=== PATIENT | male | born 1995 | race Caucasian/White ===

== ENCOUNTER 2017-03-06 17:14 | Inpatient (IN) | payer MEDICAID, OTHER, SELFPAY ==
[~2017-03-06] VITALS: Ht 167.6 cm; Wt 76.1 kg
[2017-03-06 19:12] LABS: MEAN CORPUSCULAR HEMOGLOBIN 30.4 pg (27.0-33.0); MEAN CORPUSCULAR HGB CONC 34.3 g/dl (32.0-36.5); MEAN CORPUSCULAR VOLUME 88.9 fl (80.0-96.0); RED CELL DISTRIBUTION WIDTH 12.7 % (11.5-14.5); WHITE BLOOD COUNT 13.2 K/mm3 (4.0-10.0)
[2017-03-06 19:40] LABS: METHADONE URINE NEGATIVE (NEGATIVE)
[2017-03-06 19:50] LABS: ALBUMIN 4.1 GM/DL (3.2-5.2); ALBUMIN/GLOBULIN RATIO 1.21 (1.00-1.93); ALKALINE PHOSPHATASE 87 U/L (45-117); ALT/SGPT 130 U/L (12-78); ANION GAP 11 MEQ/L (8-16); AST/SGOT 100 U/L (15-37); BILIRUBIN,DIRECT 0.2 MG/DL (0.0-0.2); BILIRUBIN,TOTAL 0.5 MG/DL (0.2-1.0); BLOOD UREA NITROGEN 5 MG/DL (7-18); CALCIUM LEVEL 9.3 MG/DL (8.5-10.1); CARBON DIOXIDE LEVEL 25 MEQ/L (21-32); CHLORIDE LEVEL 106 MEQ/L (98-107); CREATININE FOR GFR 0.75 MG/DL (0.70-1.30); GLUCOSE, FASTING 99 MG/DL (70-105); POTASSIUM SERUM 3.8 MEQ/L (3.5-5.1); SODIUM LEVEL 142 MEQ/L (136-145); TOTAL PROTEIN 7.5 GM/DL (6.4-8.2)
[2017-03-07 00:40] VITALS: BP 108/71
[2017-03-07 07:05] VITALS: BP 109/60
--- NOTE | 2017-03-07 09:46 | HPEPDOC ---
Medical History and Physical Date of Admission Mar 06, 2017 at 22:31 History and Physical PCP: None ATTENDING: Dr. Luis Duran HPI: 21yoM admitted to [facility] for unspecified depressive disorder, being medically examined today. No acute medical complaints today. Denies any fevers, chills, weakness, fatigue, DOMINGUEZ, CP, SOB, cough, palpitations, abdominal pain, N/V /D or changes in bowel or bladder habits. PMHx: Anxiety Depression Self-mutilation PSHX: Right knee Tympanostomy tubes SOCHX: Resides in: [facility] with his mother, previously from [facility] Marital Status: Single Kids: One child on the way Employment: Unemployed Tobacco use: One and a half packs per day ETOH: Once per year up to one bottle of liquor Illicit Drugs: Marijuana daily. Methamphetamine. Patient states history of "every drug" when I inquired regarding additional history. IV Drug Use: Denies Tattoos done unprofessionally: 1 FAMHX: Mother: Alive, well Father: Alive, well Siblings: 3 sisters Alive, well Children: None Unexpected deaths due to medical reasons: None. ROS: As noted in HPI, otherwise 11pt ROS of systems reviewed and remarkable only for left forearm excoriations which she states occurred with running to the words but also subsequently states he did and slight cut himself with a knife 4. He also has a small laceration noted at the distal right index finger which he states is from dropping a plate. PE: GEN: 21 yo M, appears stated age. Well-nourished, well developed. No acute distress. Alert and oriented x 3. Pleasant, interactive. HEENT: Normocephalic, atraumatic. Pupils are equal, round, and reactive to light. Extraocular movements are intact. No nystagmus appreciated. Sclera are nonicteric. Conjunctiva without injection. Nose midline. Nasal turbinates without bogginess. EACs both patent BL. TMs both visualized and gagr with good cone of light, no bulging or erythema. No facial asymmetry. Moist mucous membranes. Dentition poor. Pharynx pink and moist. White exudate is noted on the tongue and buccal mucosa consistent with candidiasis. Neck supple, trachea midline. No lymphadenopathy or thyromegaly appreciated. CHEST: Regular rate and rhythm, +S1, +S2 LUNGS: Clear to auscultation bilaterally. No wheezes, rales, or rhonchi. Breathing appears symmetric and easy. Patient is speaking in full sentences. No accessory muscle use. ABD: Round, soft, non-tender, non-distended. +Bowel sounds throughout. No rebound or guarding. No costovertebral angle tenderness. EXT: Pulses 2+ bilaterally dorsalis pedis and radial. No lower extremity edema appreciated. SKIN: [place], dry, warm. Capillary refill <2sec. No rashes. Superficial lacerations noted left forearm, minimal erythema. No drainage. Small laceration noted at the distal right index finger, no drainage. NEURO: Alert and oriented x 3. Cranial nerves III-XII are intact. No focal deficits appreciated. EKG: Pending A&P: 21yoM admitted to [facility] for unspecified depressive disorder 1. Psych. Plan per Psychiatry.Obtain baseline EKG to assure the safety of psychiatric medications as they can prolong the QT interval. 2. Nicotine dependence. Patch available. 3. Elevated LFTs. Recheck CMP. Requests hepatitis profile. Will consider right upper quadrant ultrasound pending results. 4. Follow up. No Primary Care Provider. Will attempt to establish PCP on discharge. 5. Substance use. Per psychiatry. 6. Oral candidiasis. Nystatin swish and swallow 4 times a day 10 days. 7. Leukocytosis. Patient is asymptomatic. Afebrile. Recheck CBC. 8. Tattoo done unprofessionally. Hepatitis profile as above. Patient is declining HIV screening. 9. Left forearm superficial lacerations/right index finger laceration. Apply Bactroban twice a day. Dry dressing twice a day as needed. Patient is declining Tdap stating he is up-to-date 2 years ago with [facility]. 10. Staff member Kash present throughout exam. Vital Signs Vital Signs Date Time Temp Pulse Resp B/P (MAP) Pulse Ox O2 Delivery O2 Flow Rate FiO2 03/07/17 07:05 98.1 72 16 109/60 (76) 03/07/17 00:40 Room Air 03/07/17 00:10 97 Laboratory Data Labs 24H Laboratory Tests 2 03/06/17 18:39: Urine Amphetamines Screen NEGATIVE, Urine Benzodiazepines Screen POSITIVEH, Urine Opiates Screen POSITIVEH, Urine Methadone Screen NEGATIVE, Urine Barbiturates Screen NEGATIVE, Urine Phencyclidine Screen NEGATIVE, Urine Cocaine Metabolite Screen NEGATIVE, Urine Cannabinoids Screen POSITIVEH 03/06/17 18:40: Anion Gap 11, Calcium Level 9.3, Aspartate Amino Transf (AST/SGOT) 100H, Alanine Aminotransferase (ALT/SGPT) 130H, Alkaline Phosphatase 87, Total Bilirubin 0.5, Direct Bilirubin 0.2, Total Protein 7.5, Albumin 4.1, Albumin/ Globulin Ratio 1.21, Thyroid Stimulating Hormone (TSH) 1.180, Salicylates Level 2.4L, Acetaminophen Level < 2.0L, Ethyl Alcohol Level < 0.003 CBC/BMP Laboratory Tests 03/06/17 18:39 Red Blood Count 5.24, Mean Corpuscular Volume 88.9, Mean Corpuscular Hemoglobin 30.4, Mean Corpuscular Hemoglobin Concent 34.3, Red Cell Distribution Width 12.7 03/06/17 18:40 Home Medications No Active Prescriptions or Reported Meds Allergies Coded Allergies: Erythromycin (Unverified Allergy, Unknown, 03/06/17) Raisa Dyson Mar 07, 2017 09:46
[2017-03-07] MEDS: NYSTATIN 500,000 U/5 ML SUSP UDC SS SCH ×4 (10:24→20:48)
[2017-03-07 18:00] VITALS: BP 117/60
--- NOTE | 2017-03-07 18:43 | MHHPE ---
DATE OF ADMISSION: 03/07/2017 CURRENT MEDICATIONS: None. CHIEF COMPLAINT: Patient threatening to kill himself and others. HISTORY OF PRESENT ILLNESS: This is a 21-year-old white male living with his mother. Patient's mother called the police department requesting a mental health warehouse picker. Patient got into a big fight with his mother yesterday, he went into rage attack, he was punching himself in the head, he was hitting his head against the wall, he was pulling out his own hair, he was threatening to jump out the third story window. He attempted to get a razor blade to cut himself. Patient's mother describes him as a "ticking time bomb." He does have a history of rage attacks in the past, especially under the influence of methamphetamine. Patient does have a history of polysubstance use disorder, methamphetamine is his drug of choice. He claims to have been off of it for several months now, but his urine screen is positive for opiates, benzodiazepines, and cannabinoids. Patient has life long history of depression. Currently he states his appetite is good but his claims his weight is increasing of late. He states his concentration is fine, level of energy is fine. He reports sleeping well at night. Patient does report possibly manic episodes, but is vague about this. Patient had been evicted recently. He has been staying with drug using friends and just moved into his mother's house about a week. He claims to have been drug free for six months, but clearly has been abusing drugs in the interim. PAST PSYCHIATRIC HISTORY: Patient has never been hospitalized before. He has never been on psychiatric medications before. MEDICAL HISTORY: Patient is hard of hearing. SURGICAL HISTORY: Patient had an operation on his right knee. ALLERGIES TO MEDICATIONS: He recalls being positive to some type of allergy to a medication but cannot describe which one it is or what type of reaction he had with it. LEGAL HISTORY: Patient os going to court next Saturday for pending legal charges. CHEMICAL DEPENDENCY: He has never been in outpatient or inpatient drug rehabilitation program. He has a history of polysubstance use disorder. Methamphetamine is his drug of choice. Last use of heroin was September 20. He does smoke cannabis on a regular basis. SOCIAL HISTORY: Patient born in [place] and raised in [place]. He dropped out of high school in the ninth grade, claiming the bullies at the school. He never did get his GED. Patient has three younger sisters, they live with his father. Patient is currently living at his mother's house. 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 Otherwise, his work history is quite limited. FAMILY PSYCHE HISTORY; Patient's mother is bipolar. She is interviewed by staff. She reports that gabapentin, Klonopin and Seroquel makes her "mean.": She has been on Depakote and lithium in the past with good effect. Currently his mother is on Trileptal, Xanax, Inderal, Vistaril, Zoloft and doxepin. MENTAL STATUS EXAMINATION: Patient is alert, oriented and cooperative. He is sad he is tearful, he is weepy during the session. Mood appears moderately depressed. He does report anxiety symptoms with some racing thoughts. He has recent homicidal and suicidal ideation. Insight appears poor. Judgment appears poor. He denies hearing voices. No signs of paranoia or thought disorder. He appears impulsive and a potential danger to himself and others. No signs of memory deficits. ASSESSMENT: Patient appears to have major depression history or possibly bipolar disorder along with polysubstance use disorder. DIAGNOSES: Major depression, recurrent, rule out bipolar disorder, depressed. Polysubstance use disorder. PLAN: Start trial on Zoloft 50mg every morning. Start trial on Depakote. 9.39 confirmed.
[2017-03-07] MEDS ORDERED: DIVALPROEX 500MG *ER* TAB PO SCH (21:00)
--- NOTE | 2017-03-07 21:47 | ECGEPIP ---
Stationary ECG Study [facility] Test Date: 2017-03-07 Pat Name: MARIO REY Department: Room: [place] [address] Gender: M Director Of Dietary: SAM : 1995 Requested By: Raisa Dyson Order Number: [id number] Reading MD: Rocky Urrutia Measurements Intervals [place] Rate: 60 P: 63 SC: 136 QRS: 71 QRSD: 89 T: 19 QT: 416 QTc: 417 Interpretive Statements SINUS RHYTHM NO PRIOR TRACING Electronically Signed On 03-07-2017 21:46:57 EDT by Rocky Urrutia
[2017-03-08 07:00] VITALS: BP 114/73
[2017-03-08 08:01] LABS: BASO % 0.6 % (0.0-1.0); EOS # 0.2 K/mm3 (0.0-0.50); EOS % 1.8 % (0.0-3.0); LARGE UNSTAINED CELL # 0.1 K/mm3 (0.0-0.4); LARGE UNSTAINED CELL % 1.5 % (0.0-4.0); LYMPH # 2.2 K/mm3 (1.5-6.5); LYMPH % 25.2 % (24.0-44.0); MEAN CORPUSCULAR HEMOGLOBIN 30.6 pg (27.0-33.0); MEAN CORPUSCULAR HGB CONC 34.4 g/dl (32.0-36.5); MEAN CORPUSCULAR VOLUME 88.8 fl (80.0-96.0); MONO # 0.6 K/mm3 (0.0-0.8); MONO % 6.8 % (0.0-5.0); NEUTROPHILS # 5.3 K/mm3 (1.8-7.7); NEUTROPHILS % 64.2 % (36.0-66.0); PLATELET COUNT, AUTOMATED 201 k/mm3 (150-450); RED CELL DISTRIBUTION WIDTH 12.7 % (11.5-14.5); WHITE BLOOD COUNT 8.2 K/mm3 (4.0-10.0)
[2017-03-08 08:20] LABS: ALBUMIN/GLOBULIN RATIO 1.03 (1.00-1.93); ALKALINE PHOSPHATASE 78 U/L (45-117); ALT/SGPT 134 U/L (12-78); ANION GAP 11 MEQ/L (8-16); AST/SGOT 72 U/L (15-37); BILIRUBIN,TOTAL 0.5 MG/DL (0.2-1.0); BLOOD UREA NITROGEN 11 MG/DL (7-18); CALCIUM LEVEL 9.1 MG/DL (8.5-10.1); CARBON DIOXIDE LEVEL 24 MEQ/L (21-32); CHLORIDE LEVEL 108 MEQ/L (98-107); CREATININE FOR GFR 0.78 MG/DL (0.70-1.30); GLUCOSE, FASTING 93 MG/DL (70-105); POTASSIUM SERUM 4.2 MEQ/L (3.5-5.1); SODIUM LEVEL 143 MEQ/L (136-145); TOTAL PROTEIN 7.9 GM/DL (6.4-8.2)
[2017-03-08] MEDS: NYSTATIN 500,000 U/5 ML SUSP UDC SS SCH ×4 (09:02→21:00)
[2017-03-08] MEDS: SERTRALINE HCL 50 MG TAB PO SCH (09:02)
[2017-03-08] MEDS ORDERED: IBUPROFEN 400 MG TAB PO PRN (09:45)
[2017-03-08] MEDS ORDERED: MAALOX 30 ML SUSP *UDC PO PRN (09:45)
[2017-03-08] MEDS ORDERED: MOM 30ML SUSPENSION UDC PO PRN (09:45)
[2017-03-08 18:00] VITALS: BP 133/71
--- NOTE | 2017-03-08 19:20 | MHIPN ---
DATE: 03/08/2017 VITAL SIGNS: Temperature 98.2, pulse 70, respirations 16, blood pressure 114/53. CURRENT MEDICATIONS: - Depakote 500 mg at bedtime - Zoloft 50 mg every morning HISTORY OF PRESENT ILLNESS: The patient's mother had provided information about her medication history which supported a trial on Zoloft and Depakote for the patient. The patient got his first dose of Zoloft this morning. He did tolerate the Depakote well last night. He slept better. His appetite is improved. He states that he wants to get help for his mental health and his drug addiction. 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 The patient's liver enzymes were elevated, suggesting that the patient had been drinking. The patient himself admits that alcohol makes him quite violent and "stupid." He claims he has not drunk any alcohol for years, but this is not believable due to his polysubstance use/elevated LFT's. MENTAL STATUS EXAMINATION: The patient is alert and oriented. He is anxious. He is not weepy today during the session, but does appear depressed. He does appear to have some racing thoughts and labile affect. He denies hearing voices. No signs of paranoia or thought disorder. Insight and judgment appear limited. DIAGNOSES: 1. Bipolar disorder, depressed. 2. Polysubstance use disorder. PLAN: No change in Zoloft. Depakote increased to 750 mg at bedtime. Patient to get blood level both Saturday morning and again Saturday. Monitor blood levels on the Depakote. BONNIE
[2017-03-08] MEDS: DIVALPROEX 250MG *ER* TAB PO SCH (21:00)
[2017-03-09 06:39] VITALS: BP 133/66
[2017-03-09 07:27] LABS: ALBUMIN 4.1 GM/DL (3.2-5.2); ALBUMIN/GLOBULIN RATIO 1.05 (1.00-1.93); ALKALINE PHOSPHATASE 79 U/L (45-117); ALT/SGPT 101 U/L (12-78); ANION GAP 10 MEQ/L (8-16); AST/SGOT 45 U/L (15-37); BILIRUBIN,TOTAL 0.6 MG/DL (0.2-1.0); BLOOD UREA NITROGEN 11 MG/DL (7-18); CALCIUM LEVEL 9.7 MG/DL (8.5-10.1); CARBON DIOXIDE LEVEL 27 MEQ/L (21-32); CHLORIDE LEVEL 106 MEQ/L (98-107); CREATININE FOR GFR 0.82 MG/DL (0.70-1.30); GLUCOSE, FASTING 88 MG/DL (70-105); POTASSIUM SERUM 4.1 MEQ/L (3.5-5.1); SODIUM LEVEL 143 MEQ/L (136-145)
--- NOTE | 2017-03-09 08:05 | REP ---
Abdominal right upper quadrant ultrasound: There is a negative Renee's sign to transducer pressure. There is no cholelithiasis, gallbladder wall thickening or pericholecystic fluid. There is no intrahepatic or extrahepatic biliary duct dilatation, the common duct measures 3.1 mm in diameter. The hepatic parenchyma is homogeneous and otherwise unremarkable. The visualized portion of the pancreatic head is unremarkable. The body and tail are obscured by bowel gas. There is no right renal calculus, mass, cyst or hydronephrosis. The right kidney is normal size measuring 10.1 cm craniocaudad length. There is no free fluid. Impression: Essentially negative abdominal right upper quadrant ultrasound. Signed by Jt Dickson MD 03/09/2017 07:56 A
[2017-03-09] MEDS: SERTRALINE HCL 50 MG TAB PO SCH (08:48)
[2017-03-09] MEDS: NYSTATIN 500,000 U/5 ML SUSP UDC SS SCH ×4 (08:48→21:01)
[2017-03-09] MEDS: MUPIROCIN 2% OINT 22 GM TUBE TOP PRN (09:26)
[2017-03-09 18:21] VITALS: BP 132/70
[2017-03-09] MEDS: DIVALPROEX 250MG *ER* TAB PO SCH (21:03)
[2017-03-10 06:26] VITALS: BP 152/55
[2017-03-10] MEDS: NYSTATIN 500,000 U/5 ML SUSP UDC SS SCH ×4 (08:23→21:01)
[2017-03-10] MEDS: SERTRALINE HCL 50 MG TAB PO SCH (08:23)
[2017-03-10] MEDS: MUPIROCIN 2% OINT 22 GM TUBE TOP PRN (08:24)
--- NOTE | 2017-03-10 15:31 | MHIPN ---
DATE: 03/09/2017 The patient today states "I'm doing better." He admits that he does have trouble with anger but he feels that he is more hopeful now because he plans to do some counseling when he gets discharged. He says she slept good. MENTAL STATUS EXAMINATION: This patient is alert and oriented times three. Eye contact is fairly good. Psychomotor activity is normal. There is no formal thought disorder. Mood is "better." Affect is constricted but appropriate to his mood. He is not psychotic, suicidal or homicidal. Concentration is fair. Memory intact. Insight and judgment fair. DIAGNOSES: 1. Major depressive disorder, recurrent. 2. Polysubstance drug use. TREATMENT PLAN: At this point, we will continue the patient on his current medications and titrate as indicated and continue to monitor him for continued resolution of any suicidal ideations.
[2017-03-10 18:29] VITALS: BP 132/76
[2017-03-10] MEDS: DIVALPROEX 250MG *ER* TAB PO SCH (21:01)
--- NOTE | 2017-03-11 06:28 | IPN ---
DATE: 03/10/2017 Patient states "I am doing better". He says he is focusing on what he needs to do such as treatment for addiction when he gets out. Not having any problems with anger. He says he slept good. MENTAL STATUS EXAMINATION: This patient is alert, oriented times three. Eye contact is fair. Psychomotor activity is normal. Not psychotic, suicidal or homicidal. Concentration is fair. Insight and judgment is fair. DIAGNOSES: Major depressive disorder, recurrent. Polysubstance abuse. TREATMENT PLAN: At this point, we will continue to monitor the patient for continued resolution of suicidal and homicidal ideations and continue stabilization of his mood.
[2017-03-11 07:04] VITALS: BP 117/72
[2017-03-11] MEDS: NYSTATIN 500,000 U/5 ML SUSP UDC SS SCH ×2 (08:11→12:17)
[2017-03-11] MEDS: SERTRALINE HCL 50 MG TAB PO SCH (08:12)
[2017-03-11 09:14] LABS: ALBUMIN 4.1 GM/DL (3.2-5.2); ALBUMIN/GLOBULIN RATIO 1.11 (1.00-1.93); ALKALINE PHOSPHATASE 70 U/L (45-117); ALT/SGPT 65 U/L (12-78); ANION GAP 8 MEQ/L (8-16); AST/SGOT 25 U/L (15-37); BILIRUBIN,DIRECT 0.2 MG/DL (0.0-0.2); BILIRUBIN,TOTAL 0.6 MG/DL (0.2-1.0); BLOOD UREA NITROGEN 14 MG/DL (7-18); CALCIUM LEVEL 9.3 MG/DL (8.5-10.1); CARBON DIOXIDE LEVEL 27 MEQ/L (21-32); CHLORIDE LEVEL 108 MEQ/L (98-107); CREATININE FOR GFR 0.89 MG/DL (0.70-1.30); GLUCOSE, FASTING 96 MG/DL (70-105); POTASSIUM SERUM 4.4 MEQ/L (3.5-5.1); SODIUM LEVEL 143 MEQ/L (136-145); TOTAL PROTEIN 7.8 GM/DL (6.4-8.2)
[2017-03-11] MEDS ORDERED: DEPA250T2 PO ×2 (15:03→15:23)
[2017-03-11] MEDS ORDERED: SERT50TA PO ×2 (15:03→15:23)
--- NOTE | 2017-03-11 16:20 | MHDS ---
DATE OF ADMISSION: 03/06/2017 DATE OF DISCHARGE: 03/11/2017 VITAL SIGNS: Temperature 98.1, pulse 58, respirations 16, blood pressure 117/72. LABORATORY DATA: CBC and differential within normal limits. Serum chemistry normal except for chloride 108. Toxicology is positive for opiates, benzodiazepines, and cannabinoids. Valproic acid level is therapeutic at 51.8 on 03/09/2017 and 75.0 on 03/11/2017. DISCHARGE MEDICATIONS: - Depakote ER 250 mg three by mouth at bedtime - Zoloft 50 mg every morning DISCHARGE DIAGNOSES: 1. Bipolar disorder, depressed. 2. Polysubstance use disorder. HISTORY OF PRESENT ILLNESS: This is a 21-year-old white male living with his mother. The patient got into a big fight with his mother the day prior to admission. He went into a rage attack. He started punching himself in the head and hitting his head against the wall. He was pulling out his own hair. He was threatening to jump out the third story window. He attempted to get a razorblade to cut himself. The patient's mother describes him as a "ticking time bomb." He does have a history of rage attacks in the past, especially under the influence of methamphetamine and alcohol. Methamphetamine is his drug of choice. He claims to have been off of it for several months. He denies use of other substances but his urine screen is positive as mentioned above. He has a long history of depression and impulsivity as well as likely manic episodes. PROGRESS ON THE UNIT: The patient's mood was quite labile while on the psychiatric munoz. His mother was consulted regarding her history. She has a history of bipolar disorder as well. She described the various psychotropic medications that work the best for her in the past. She apparently did poorly on Seroquel. She did well on Zoloft and Depakote. The patient was started on Zoloft 50 mg every morning and Depakote 500 mg at bedtime. He tolerated these psychotropic medications well. His mood improved rapidly. He was more social with his peers on the unit. His mother and girlfriend came up to visit. They reported further progress. Suicidal ideation resolved. The patient was somewhat attentive to the group therapy program. The patient denied any craving for substances. He is willing to go to outpatient mental health and chemical dependency treatment. MENTAL STATUS EXAMINATION: At the time of discharge, mood and affect appeared much improved. Mood was much more stable. He was less anxious. Depression was minimal. He was not suicidal, not homicidal. Impulse control much improved. No outbursts here on the unit. No signs of psychosis, not hearing voices. No paranoia or thought disorder. Memory functions appeared intact. No signs of dangerousness at time of discharge. ASSESSMENT: He appeared to reach maximal hospital benefit. PLAN: Continue psychotropic medications, followup with outpatient mental health and chemical dependency treatment.
== END 2017-03-11 15:52 | disposition home or self-care (01) | DRG 753 ==
LOC: M ED 17:14 → M ED INP 22:31 → M PSY 03-07 00:04
PROVIDERS: ADMIT Psychiatry & Neurology Psychiatry; ATTEND Psychiatry & Neurology Psychiatry
DX: F31.9 Bipolar disorder, unspecified (principal); Z79.899 Other long term (current) drug therapy; F17.200 Nicotine dependence, unspecified, uncomplicated; B37.0 Candidal stomatitis; D72.828 Other elevated white blood cell count; F12.90 Cannabis use, unspecified, uncomplicated